=== PATIENT | female | born 1945 | race African-American/Black ===

== ENCOUNTER 2017-02-19 15:53 | Emergency (ER) | payer OTHER ==
--- NOTE | ~2017-02-19 | CR72 ---
[facility] A Service of [facility] & [facility] RADIOLOGY TEXT RESULTS PATIENT: CHON LOGAN LOCATION: SED : 41 UNIT #: [id number] AGE: [address]: Kandace Nova MD SEX: F ORDER DR: [id number] [place] [id number] E MR#: [id number] Acc #: [id number] NAME: CHON LOGAN : 1945 SEX: F STUDY DATE/TIME: 02/19/2017 15:55 UNIT: SED ROOM: STUDY DESCRIPTION: CR Chest Single View Portable Attending Physician: Kandace Nova M.D. Ordering Physician: Physician Non-Staff Primary Care Physician: Devin Melendez M.D. MEDICAL IMAGING REPORT This report is preliminary unless electronic signature is present. EXAM Portable chest INDICATIONS A 71-year female with cough, fever, headache and dizziness since yesterday. COMPARISON 03/19/2013 FINDINGS The lungs are well expanded and clear. Heart size is normal. Hiatal hernia. Visualized osseous structures are unremarkable. IMPRESSION No acute findings. No active disease Dictated by... George Clement M.D. THIS IS AN ELECTRONICALLY VERIFIED REPORT George Clement M.D. at 02/20/2017 8:24 AM HANNY/daryn TD: 02/19/2017 19:16 JOB #: [id number] MEDICAL IMAGING REPORT Page 1 of 1
[~2017-02-19 15:53] MED LIST: ALBUTEROL17 GM; AMITIZA24 MCG PO; ARTHRITIS PAIN650 M2; ASPIRIN81 MG; COZAAR; EYE ITCH RELIEF5 ML; HCTZ; LASIX20 MG; LIPITOR20 MG; LOSARTAN POTASS25 MG PO; NYSTATIN1 EAC1; OMEPRAZOLE40 MG PO; PRILOSEC; SIMVASTATIN20 MG PO; TOPROL XL; VOLTAREN75 MG PO
[2017-02-19 16:00] LABS: URINE SOURCE CLEAN CATCH
[2017-02-19 16:02] LABS: MICRO INDICATED? YES; URINE APPEARANCE CLEAR; URINE BILIRUBIN NEG (NEG); URINE BLOOD TRACE-INTACT (NEG); URINE COLOR YELLOW; URINE GLUCOSE NEG (NORM); URINE KETONE NEG (NEG); URINE LEUKOCYTE ESTERASE NEG (NEG); URINE NITRATE NEG (NEG); URINE PH 5.5 (5-8); URINE PROTEIN NEG (NEG); URINE UROBILINOGEN 0.2 MG/DL (NORM)
[2017-02-19 16:10] LABS: INFLUENZA A NEG (NEG); INFLUENZA B NEG (NEG)
[2017-02-19 16:14] LABS: URINE BACTERIA NEG (NEG); URINE RBC 0-2 /[HPF] (0-2); URINE SQUAMOUS EPITHELIAL CELL FEW /[HPF]; URINE WBC 0-2 /[HPF] (0-5)
== END 2017-02-19 16:56 | disposition home or self-care (01) ==
LOC: SED 15:53
PROVIDERS: Emergency Medicine
DX: J11.1 Influenza due to unidentified influenza virus with other respiratory manifestations (principal); I10 Essential (primary) hypertension; I25.10 Atherosclerotic heart disease of native coronary artery without angina pectoris; Z98.890 Other specified postprocedural states
CPT/HCPCS: 71010; 81003; 87804; 99283